=== PATIENT | male | born 1995 ===

== ENCOUNTER 2017-08-19 14:00 | Emergency (ER) | payer OTHER ==
[~2017-08-19] VITALS: Ht 162.6 cm; Wt 94.8 kg
[~2017-08-19 14:00] MED LIST: METOPROLOL TARTRATE 25 MG TAB PO SCH
[2017-08-19 14:02] VITALS: TEMP 37.3; Ht 162.6 cm; Wt 94.8 kg
[2017-08-19] MEDS ORDERED: METOPROLOL TARTRATE 1 MG/ML VIAL IV STA (14:28)
[2017-08-19 14:42] LABS: BASO % 0.3 %; BASO ABS # 0.02 K/uL (0-0.2); EOS ABS # 0.06 K/uL (0-0.5); HEMATOCRIT 48.6 % (42-52); HEMOGLOBIN 17.3 g/dL (14.0-18.0); IG# 0.02 K/uL (0.00-0.02); LYMPH % 32.4 %; LYMPH ABS # 1.87 K/uL (1.2-3.4); MEAN CELL VOLUME 79.3 fL (80-100); MEAN CORPUSCULAR HEMOGLOBIN 28.2 pg (25-34); MEAN CORPUSCULAR HGB CONC 35.6 g/dl (32-36); MEAN PLATELET VOLUME 10.5 fL (7.4-10.4); MONO % 5.5 %; MONO ABS # 0.32 K/uL (0.11-0.59); NEUT % 60.5 %; NEUT ABS # 3.49 K/uL (1.4-6.5); PLATELET COUNT 210 K/uL (130-400); RED CELL DISTRIBUTION WIDTH CV 14.5 % (11.5-14.5); RED CELL DISTRIBUTION WIDTH SD 41.9 fL (36.4-46.3); WHITE BLOOD COUNT 5.78 K/uL (4.8-10.8)
--- NOTE | 2017-08-19 14:49 | EMERGENCY ROOM VISIT NOTE ---
History First contact with patient: 14:12 Chief Complaint: HYPERTENSION Stated Complaint: HIGH BLOOD PRES DR REFERRED History of Present Illness The patient is a 22 year old male who presents to the Emergency Room with complaints of hypertension and dizziness for the last 2 days. The patient noticed a spinning sensation yesterday. He also noticed it this morning. The patient has a history of hypertension. He took his blood pressure early this morning. It was elevated at 170/100. The patient contacted his cousin who is a stretcher and drier. He was instructed to take an additional blood pressure pill, weight 2 hours and then recheck his blood pressure. When he did this, his blood pressure and increased to 185/110. The patient takes amlodipine 5 mg/ valsartan 160 mg 1 tab at night. Again, he did have an additional dose this morning. He denies any chest pain or difficulty breathing. No nausea or vomiting. Review of Systems 10 system review performed and negative unless noted in HPI or below Past Medical/Surgical History Hypertension Family History Hypertension, diabetes Social History Smoking Status: Never Smoker Marital Status: single Occupation Status: [employer] student Current/Historical Medications Scheduled Hawyducrnb-Eiogbzssa-Vodbotpxb (Amlodipine/Valsartan/Hctz 5-160-12.5 mg), 1 TAB PO HS Ferrous Gluconate (Iron Supplement), 324 MG PO DAILY Metoprolol Tartrate (Lopressor) (Lopressor), 0.5 TAB PO BID Physical Exam Vital Signs Date Time Temp Pulse Resp B/P (MAP) Pulse Ox O2 Delivery O2 Flow Rate FiO2 08/19/17 16:47 75 20 133/76 08/19/17 16:27 144/88 08/19/17 15:56 85 18 148/86 98 Room Air 08/19/17 15:23 78 18 149/88 Room Air 08/19/17 15:17 84 08/19/17 15:02 89 167/77 08/19/17 14:02 37.3 96 18 160/95 97 Room Air Physical Exam GENERAL: 22-year-old male, in no acute distress, nondiaphoretic, well-developed well-nourished. SKIN: The skin was without rashes, erythema, edema, or bruising. HEAD: Normocephalic atraumatic. EARS: External auditory canals clear, tympanic membranes pearly selby without erythema or effusion bilaterally. EYES: Conjunctivae without injection, sclerae without icterus. Extraocular movements intact. NECK: Supple without nuchal rigidity.. No JVD. HEART: Regular rate and rhythm without murmurs gallops or rubs. LUNGS: Clear to auscultation bilaterally without wheezes, rales or rhonchi. No accessory muscle use. ABDOMEN: Positive bowel sounds x 4.Soft, MUSCULOSKELETAL: No muscle atrophy, erythema, or edema noted. Strength 5/5 throughout. NEURO: Patient was alert and oriented to person place and time. Normal sensation to touch. No focal neurological deficits. Medical Decision & Procedures ER Provider Diagnostic Interpretation: CT head w/o IMPRESSION: No acute intracranial abnormality. Electronically signed by: Daniel Mclain M.D. 08/19/2017 3:51 PM Dictated Date/Time: 08/19/2017 3:50 PM The status of this report is Signed. Draft = Not yet reviewed or approved by Radiologist. Signed = Reviewed and approved by Radiologist. <AttendingPhy></AttendingPhy> <FamilyPhy>[facility]</FamilyPhy> <PrimaryPhy>[facility]</PrimaryPhy> <UnitNumber>[id number]</ UnitNumber> <VisitNumber>[id number]</VisitNumber> <PatientName>BURKE WALKER</ PatientName> <DateOfBirth>1995</DateOfBirth> <Location>C.EDB</Location> < ServiceDate>08/19/17</ServiceDate> <MNE>ESINDI</MNE> <OrderingPhy>Allegra Sifuentes PA-C</OrderingPhy> <OrderingPhyMNE>f rep ord dr kaiser</OrderingPhyMNE> < DictatingPhyMNE>f rep dict dr kaiser</DictatingPhyMNE> <CCListMNE>f rep ct mne</ CCListMNE> <AdmittingPhyMNE>f pt admit dr kaiser</AdmittingPh CXR Patient Name: BURKE WALKER Unit Number: [id number] Dictated: 08/19/17 1459 Transcribed: 08/19/17 1459 EV Printed Date/Time: [~ rep prt dt]/[~ rep prt tm] [~ rep ct labl] - [~ rep ct ivnm] [facility] [place] [address] Dictated: 08/19/17 1459 Transcribed: 08/19/17 1459 EV Printed Date/Time: [~ rep prt dt]/[~ rep prt tm] [~ rep ct labl] - [~ rep ct ivnm] IMPRESSION: No active disease in the chest. Electronically signed by: Daniel Mclain M.D. 08/19/2017 3:00 PM Dictated Date/Time: 08/19/2017 2:59 PM The status of this report is Signed. Draft = Not yet reviewed or approved by Radiologist. Signed = Reviewed and approved by Radiologist. <AttendingPhy></AttendingPhy> <FamilyPhy></FamilyPhy> <PrimaryPhy></PrimaryPhy> <UnitNumber>[id number]</UnitNumber> <VisitNumber>[id number]</VisitNumber> < PatientName>DENISEBURKE</PatientName> <DateOfBirth>1995</DateOfBirth> < Location>C.EDB</Location> <ServiceDate>08/19/17</ServiceDate> <MNE>ESINDI</MNE> <OrderingPhy>Allegra Sifuentes PA-C</OrderingPhy> <OrderingPhyMNE>f rep ord dr kaiser </OrderingPhyMNE> <DictatingPhyMNE>f rep dict dr kaiser</DictatingPhyMNE> < CCListMNE>f rep ct mne</CCListMNE> <AdmittingPhyMNE>f pt admit dr kaiser</ AdmittingPhyMNE> <AttendingPhyMNE>f pt attend dr kaiser</AttendingPhyMNE> <ConsultingPhyMNE>f pt consult dr kaiser</ConsultingPhyMNE> <FamilyPhyMNE>f pt fam dr kaiser</FamilyPhyMNE> <OtherPhyMNE>f pt other dr kaiser</OtherPhyMNE> < PrimaryPhyMNE>f pt prim care dr kaiser</PrimaryPhyMNE> <ReferringPhyMNE>f pt referring dr kaiser</ReferringPhyMNE> Laboratory Results 08/19/17 14:30 Red Blood Count 6.13, Mean Corpuscular Volume 79.3, Mean Corpuscular Hemoglobin 28.2, Mean Corpuscular Hemoglobin Concent 35.6, Mean Platelet Volume 10.5, Neutrophils (%) (Auto) 60.5, Lymphocytes (%) (Auto) 32.4, Monocytes (%) (Auto) 5.5, Eosinophils (%) (Auto) 1.0, Basophils (%) (Auto) 0.3, Neutrophils # (Auto) 3.49, Lymphocytes # (Auto) 1.87, Monocytes # (Auto) 0.32, Eosinophils # (Auto) 0.06, Basophils # (Auto) 0.02 08/19/17 14:30 Test 08/19/17 14:30 08/19/17 15:30 White Blood Count 5.78 K/uL (4.8-10.8) Red Blood Count 6.13 M/uL (4.7-6.1) Hemoglobin 17.3 g/dL (14.0-18.0) Hematocrit 48.6 % (42-52) Mean Corpuscular Volume 79.3 fL (80-100) Mean Corpuscular Hemoglobin 28.2 pg (25-34) Mean Corpuscular Hemoglobin Concent 35.6 g/dl (32-36) Platelet Count 210 K/uL (130-400) Mean Platelet Volume 10.5 fL (7.4-10.4) Neutrophils (%) (Auto) 60.5 % Lymphocytes (%) (Auto) 32.4 % Monocytes (%) (Auto) 5.5 % Eosinophils (%) (Auto) 1.0 % Basophils (%) (Auto) 0.3 % Neutrophils # (Auto) 3.49 K/uL (1.4-6.5) Lymphocytes # (Auto) 1.87 K/uL (1.2-3.4) Monocytes # (Auto) 0.32 K/uL (0.11-0.59) Eosinophils # (Auto) 0.06 K/uL (0-0.5) Basophils # (Auto) 0.02 K/uL (0-0.2) RDW Standard Deviation 41.9 fL (36.4-46.3) RDW Coefficient of Variation 14.5 % (11.5-14.5) Immature Granulocyte % (Auto) 0.3 % Immature Granulocyte # (Auto) 0.02 K/uL (0.00-0.02) Anion Gap 9.0 mmol/L (3-11) Est Creatinine Clear Calc Drug Dose 117.2 ml/min Estimated GFR () 120.1 Estimated GFR (Non- 103.6 BUN/Creatinine Ratio 11.3 (10-20) Calcium Level 9.0 mg/dl (8.5-10.1) Total Bilirubin 0.4 mg/dl (0.2-1) Aspartate Amino Transf (AST/SGOT) 31 U/L (15-37) Alanine Aminotransferase (ALT/SGPT) 73 U/L (12-78) Alkaline Phosphatase 74 U/L (45-117) Total Creatine Kinase 293 U/L (39-308) Creatine Kinase MB 1.4 ng/ml (0.5-3.6) Creatine Kinase MB Ratio 0.5 (0-3.0) Troponin I < 0.015 ng/ml (0-0.045) Total Protein 9.2 gm/dl (6.4-8.2) Albumin 4.6 gm/dl (3.4-5.0) Globulin 4.6 gm/dl (2.5-4.0) Albumin/Globulin Ratio 1.0 (0.9-2) Thyroid Stimulating Hormone (TSH) 2.340 uIu/ml (0.300-4.500) Urine Color YELLOW Urine Appearance CLEAR (CLEAR) Urine pH 7.5 (4.5-7.5) Urine Specific [place] 1.015 (1.000-1.030) Urine Protein 1+ (NEG) Urine Glucose (UA) NEG (NEG) Urine Ketones NEG (NEG) Urine Occult Blood NEG (NEG) Urine Nitrite NEG (NEG) Urine Bilirubin NEG (NEG) Urine Urobilinogen NEG (NEG) Urine Leukocyte Esterase NEG (NEG) Urine WBC (Auto) 1-5 /hpf (0-5) Urine RBC (Auto) 0-4 /hpf (0-4) Urine Hyaline Casts (Auto) 1-5 /lpf (0-5) Urine Epithelial Cells (Auto) 0-5 /lpf (0-5) Urine Bacteria (Auto) NEG (NEG) Medications Administered Medications (Trade) Dose Ordered Sig/Nicho Route Start Time Stop Time Status Last Admin Dose Admin Metoprolol Tartrate (Lopressor Iv) 5 mg NOW STAT IV 08/19/17 14:28 08/19/17 14:30 DC 08/19/17 15:02 5 MG Metoprolol Tartrate (Lopressor Tab) 12.5 mg ONE STAT PO 08/19/17 16:34 08/19/17 16:36 DC 08/19/17 17:15 12.5 MG ECG Indication: other Rate (beats per minute): 71 Rhythm: normal sinus Comparison ECG Date: no prior available ED Course Patient was seen and examined Vital signs including blood pressure were reviewed medications list was verified with patient Labs were obtained, and a saline lock was established An EKG was performed and interpreted by myself The monitor was applied He was given metoprolol 5 mg IV Imaging was performed The patient was reassessed and resting comfortably. We discussed his results at length. He voiced understanding. Repeat vital signs and EKG were performed and personally reviewed by myself and my supervising physician I reviewed discharge instructions the patient. They voiced understanding and had no further questions. Medical Decision Differential diagnosis: Hypertensive urgency, emergency, essential hypertension , renal artery stenosis This patient is a 22-year-old male that presents to emergency department with complaints of dizziness and hypertension. His blood pressure was fairly elevated upon arrival. This responded nicely to metoprolol IV. There are no signs of myocardial damage or renal impairment. Cardiac enzymes are negative. No signs of ischemia on EKG. His head CT is negative. I do believe that anxiety is playing a role in his symptoms. The patient is already taking Norvasc 5 mg/losartan 160 mg. I will add metoprolol tartrate 12.5 mg twice daily. The patient ordered a blood pressure cuff. He will follow his blood pressure over the next several days. He was advised to follow up closely with [facility]. He was comfortable with this plan, and discharged in good condition This chart was completed in part utilizing [employer] Speech Voice Recognition software. Attempts were made to minimize the grammatical errors, random word insertions, pronoun errors and incomplete sentences. Any formal questions or concerns about the content, text or information contained within the body of this dictation should be directly addressed to the provider for clarification. Blood Pressure Screening Patient's blood pressure: Elevated blood pressure Blood pressure disposition: Did not require urgent referral Impression Primary Impression: Hypertension Departure Information Dispostion Home / Self-Care Condition GOOD Prescriptions Metoprolol Tartrate (Lopressor) (Lopressor) 25 Mg Tab 0.5 TAB PO BID for 30 Days, #30 TAB 1 Refill Prov: Allegra Sifuentes PA-C 08/19/17 Patient Instructions [facility] Additional Instructions You were evaluated in the emergency department for dizziness and high blood pressure. Please monitor your blood pressure daily at home if possible Continue your current blood pressure medication as prescribed You have been prescribed another blood pressure medication to take in addition to your current medication: -Metoprolol 12.5 mg twice daily It is very important for you to follow-up closely with [facility]. Please call Monday morning for a follow-up appointment. Do not hesitate to return to the emergency department with any new, worsening or concerning symptoms
[2017-08-19 14:58] LABS: ALBUMIN 4.6 gm/dl (3.4-5.0); ALT/SGPT 73 U/L (12-78); AST/SGOT 31 U/L (15-37); BLOOD UREA NITROGEN 11 mg/dl (7-18); CARBON DIOXIDE 26 mmol/L (21-32); CREATININE 1.01 mg/dl (0.60-1.40); GLUCOSE 113 mg/dl (70-99); POTASSIUM 3.4 mmol/L (3.5-5.1); SODIUM 137 mmol/L (136-145)
--- NOTE | 2017-08-19 15:01 | DIAGNOSTIC IMAGING REPORT ---
SINGLE VIEW CHEST CLINICAL HISTORY: Hypertension. FINDINGS: An AP, portable, upright chest radiograph is obtained. No prior studies are available for comparison at the time of dictation. The examination is mildly degraded by portable technique and patient rotation. The cardiomediastinal silhouette is unremarkable. The lungs and pleural spaces are clear. No pneumothorax is seen. The bony thorax is grossly intact. IMPRESSION: No active disease in the chest. Electronically signed by: Daniel Mclain M.D. 08/19/2017 3:00 PM Dictated Date/Time: 08/19/2017 2:59 PM
[2017-08-19] MEDS ORDERED: FERR324T PO (15:03)
[2017-08-19] MEDS ORDERED: AMLO-349 PO (15:03)
[2017-08-19 15:09] LABS: ALKALINE PHOSPHATASE 74 U/L (45-117); CKMB 1.4 ng/ml (0.5-3.6); TOTAL PROTEIN 9.2 gm/dl (6.4-8.2)
--- NOTE | 2017-08-19 15:53 | DIAGNOSTIC IMAGING REPORT ---
CT SCAN OF THE BRAIN WITHOUT IV CONTRAST CLINICAL HISTORY: Dizziness. Hypertension. COMPARISON STUDY: No priors. TECHNIQUE: Unenhanced axial CT scan of the brain is performed from the vertex to the skull base. A dose lowering technique was utilized adhering to the principles of ALARA. CT DOSE: 623.48 mGy.cm FINDINGS: Brain parenchyma: The brain parenchyma is normal in appearance. There is no hemorrhage, mass effect, or evidence of acute territorial ischemia by CT criteria. Reyez-white matter is preserved. No extra-axial fluid collection is seen. Ventricles, sulci, cisterns: Normal in configuration. Intracranial vasculature: The visualized intracranial vasculature at the skull base is normal in appearance. Calvarium: Unremarkable. Sinuses and mastoids: The visualized paranasal sinuses are clear. The mastoid air cells are well pneumatized. Orbits: The bony orbits are grossly intact. IMPRESSION: No acute intracranial abnormality. Electronically signed by: Daniel Mclain M.D. 08/19/2017 3:51 PM Dictated Date/Time: 08/19/2017 3:50 PM
[2017-08-19] MEDS ORDERED: METO25TA56 PO (16:33)
[2017-08-19] MEDS ORDERED: METOPROLOL TARTRATE 25 MG TAB PO ONE (16:34)
[2017-08-19] MEDS ORDERED: METOPROLOL TARTRATE 25 MG TAB PO STA (16:34)
[2017-08-19 17:38] VITALS: BP 133/76; PULSE 72; O2SAT 99
== END 2017-08-19 17:40 | disposition home or self-care (01) ==
LOC: C.EDB 14:03
DX: I10 Essential (primary) hypertension (principal); R42 Dizziness and giddiness